=== PATIENT | male | born 2000 | race Caucasian/White ===

== ENCOUNTER 2025-02-09 13:16 | Emergency (ER) | payer OTHER ==
[~2025-02-09] VITALS: Ht 180.3 cm; Wt 72.7 kg
[2025-02-09 16:20] VITALS: BP 130/70; PULSE 72; RESP 16; TEMP 98.5; O2SAT 98
== END 2025-02-09 16:22 | disposition home or self-care (01) ==
LOC: ER 13:17
DX: R05.9 Cough, unspecified (principal); R07.9 Chest pain, unspecified; M94.0 Chondrocostal junction syndrome [Tietze]; Z88.0 Allergy status to penicillin; Z88.8 Allergy status to other drugs, medicaments and biological substances
CPT/HCPCS: 71046; 76870; 93976; 99284